=== PATIENT | male | born 1990 | race Caucasian/White ===

== ENCOUNTER 2018-11-08 14:27 | Emergency (ER) | payer OTHER ==
[~2018-11-08] VITALS: Ht 175.3 cm; Wt 75.0 kg
[2018-11-08 14:38] VITALS: BP 139/78
== END 2018-11-08 17:05 | disposition home or self-care (01) ==
LOC: ER 14:27
DX: R22.0 Localized swelling, mass and lump, head (principal)
CPT/HCPCS: 99283